=== PATIENT | female | born 1990 | race Caucasian/White ===

== ENCOUNTER 2018-10-02 14:31 | Emergency (ER) | payer OTHER, SELFPAY ==
[2018-10-02 13:18] VITALS: BMI 20.7
[2018-10-02 14:33] VITALS: BP 109/62; PULSE 66; RESP 16; TEMP 36.7; O2SAT 100; BMI 21.4
--- NOTE | 2018-10-02 15:47 | ED.VISSUMM ---
- ER Visit Summary Date of Service: 10/02/18 Chief Complaint: Patient presents with mouth sores these have been ongoing for quite some time she has gluten and lactose intolerance is wondering if this is related. There is no fever chills no chest pain shortness of breath. She is in her early second trimester . Eyes polyuria polydipsia. Physical Examination: Not appear in acute distress. Moist mucous membranes, there are canker sores throughout her gingiva and gums. No C-spine tenderness supple neck. Regular rate and rhythm without any obvious murmurs Clear lungs bilaterally speaking in full sentences without any obvious respiratory distress Moves all extremities without any difficulty or pain. Abdomen is soft, I do not appreciate a gravid uterus yet. There is no tenderness Skin does not show any obvious rashes or lesions, no trauma. Alert oriented ?3 with no gross focal deficit Treatment Plan: Patient request patient blood work was obtained is unremarkable I am unsure what the etiology of her symptoms she still to follow-up with dentistry. Disposition: [Discharge stable condition] Impression: [Canker sores] This note was generated with [employer] dictation software. It may contain incorrect words, spelling, and punctuation that were not noted in review of the chart prior to signing ED Disposition - Plan for ED Patient: Disposition: Home or Assisted Living Instructions: ED Canker Sore Prescriptions: Magic Mouth Wash 10 ml PO BID #200 ml Referrals: Care Physician,No Primary [Primary Care Provider] - 3-5 Days
[2018-10-02 16:11] LABS: Absolute Lymphocyte Count 2.41 X10^3/ul (0.83-4.51); Absolute Neutrophil Count 4.5 X10^3/uL (2.0-7.7); Basophil# 0.01 X10^3/uL; Basophil% 0.1 % (0-1); Eosinophil# 0.04 X10^3/uL; Eosinophils% 0.5 % (0-5); Hematocrit 34.8 % (37-47); Hemoglobin 11.9 g/dl (12.0-15.0); Lymphocyte # 2.41 X10^3/ul (4.0); Lymphocyte % 32.1 % (19-41); Mean Corp Hgb Conc 34.2 g/gl (32-36); Mean Corpuscular Hgb 30.3 pg (27.0-32.0); Mean Corpuscular Volume 88.5 fL (81-99); Mean Platelet Vol. 9.4 fl (6.2-12.0); Monocyte# 0.52 X10^3/uL; Monocyte% 6.9 % (0-10); Neutrophil # 4.51 X10^3/uL (2.7-7.7); Neutrophil % 60.3 % (47-70); Platelet Count 239 K/mm3 (150-450); RBC Distribution Width CV 13.1 % (11.6-14.6); RBC Distribution Width SD 42.5 fl (35.1-43.9); Red Blood Count 3.93 M/mm3 (4.2-5.4); White Blood Count 7.5 K/mm3 (4.4-11.0)
[2018-10-02 16:12] LABS: POSITIVE COUNT NO; POSITIVE DIFFERENTIAL NO; POSITIVE MORPHOLOGY NO
[2018-10-02 16:13] VITALS: TEMP 36.7
[2018-10-02 16:22] LABS: BUN 6 mg/dL (7-18); BUN/Creat Ratio 10.9 RATIO (10-20); Creatinine, Serum 0.55 mg/dL (0.55-1.02); EST Glomerular Filtration Rate 142 mL/min (>60); Est Glom Filt Rate - Afr Amer 171 mL/min (>60); Estimated Creatinine Clearance 128.22 ml/min; Glucose 84 mg/dL (74-106)
[2018-10-02 16:23] LABS: ALB/GLOB Ratio 0.9 RATIO (0.9-2.4); AST(SGOT) 11 U/L (15-37); Alanine Aminotransfer ALT/SGPT 13 U/L (13-56); Albumin, Serum 3.4 g/dL (3.2-5.0); Alkaline Phosphatase 41 U/L (45-117); Anion Gap 6 (5-15); Calcium,Total 8.4 mg/dL (8.5-10.1); Chloride 106 mmol/L (98-107); Globulin 3.6 g/dL (2.2-4.2); Potassium 3.6 mmol/L (3.5-5.1); Sodium Level 137 mmol/L (136-145)
== END 2018-10-02 17:34 | disposition home or self-care (01) ==
PROVIDERS: Emergency Provider Emergency Medicine
DX: O99.612 Diseases of the digestive system complicating pregnancy, second trimester (principal); K12.0 Recurrent oral aphthae; K12.1 Other forms of stomatitis; E73.9 Lactose intolerance, unspecified; Z3A.00 Weeks of gestation of pregnancy not specified
CPT/HCPCS: 36415; 80053; 85025; 99282